=== PATIENT | female | born 1960 | race Caucasian/White ===

== ENCOUNTER 2017-02-28 18:53 | Emergency (ER) | payer MEDICARE, MEDICAID ==
[~2017-02-28] VITALS: Ht 157.5 cm; Wt 69.0 kg
[2017-02-28 19:05] VITALS: BP 192/95; PULSE 96; RESP 19; TEMP 98.6; O2SAT 97
[2017-02-28 19:08] VITALS: BP 192/95; PULSE 96; RESP 19; TEMP 98.6; O2SAT 97
[2017-02-28] MEDS ORDERED: ALBUAER3 INH (19:20)
[2017-02-28] MEDS ORDERED: MSIR15 PO (19:20)
[2017-02-28] MEDS ORDERED: LYRI75CA PO (19:20)
[2017-02-28] MEDS ORDERED: CYCL10TA PO (19:20)
[2017-02-28 19:22] VITALS: BP 233/101; PULSE 96; RESP 16; O2SAT 97
[2017-02-28] MEDS ORDERED: BUTA1CAP PO (19:22)
[2017-02-28] MEDS ORDERED: PRIL20TA2 (19:22)
[2017-02-28] MEDS ORDERED: REGL10TA5 PO (19:22)
[2017-02-28] MEDS ORDERED: diphenhydrAMINE HCL 50 MG/ML VIAL IVP ONE (20:00)
[2017-02-28] MEDS ORDERED: TETANUS/DIPHTHERIA TOXOID ADULT 0.5 ML VIAL IM ONE (20:00)
[2017-02-28] MEDS ORDERED: SODIUM CHLORIDE 0.9% FLUSH 10 ML FLUSH IVF PRN (20:00)
[2017-02-28] MEDS ORDERED: SODIUM CHLOR 0.9% 1000 ML INJ 1,000 ML IV ONE (20:00)
[2017-02-28] MEDS ORDERED: METOCLOPRAMIDE HCL 10 MG/2 ML VIAL IVP ONE (20:00)
--- NOTE | 2017-02-28 20:08 | PD ---
HPI Chief Complaint: Fall Time Seen by Provider: 19:46 Travel History International Travel<30 days: No Contact w/Intl Traveler<30days: No Traveled to known affect area: No History of Present Illness HPI Patient comes in for evaluation status post trip and fall that occurred shortly prior to arrival. Patient states she tripped over the sidewalk injuring her right ankle, left knee, and hitting her head. This was a witnessed fall. Witness reports that she either lost consciousness for just was dazed momentarily. Patient describes pain in her head as an exploding pain in the right parietal lobe without radiation. Denies anything making it better or worse. Patient complaining of aching pain in her left knee and right ankle. Reports right ankle has improved since being in the emergency department and she is able to move it now. Denies anything making it worse. Patient's states left knee pain is worse with movement causing not able to flex it. Pain improved with not moving it. Denies any radiation of pain. Patient reports she is supposed to take a blood thinner but has not taken it in months. She denies any chest pain, shortness of breath, nausea, vomiting, loss or change in bowel or bladder, numbness or tingling anywhere, change in vision, or fevers. Patient uncertain of last tetanus shot. 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) Social History Alcohol Use: Yes (rarely) Tobacco Use: Yes (1ppd) Substance Use: No Allergies-Medications (Allergen,Severity, Reaction): Coded Allergies: adhesive tape (Verified Allergy, Unknown, 02/28/17) Reported Meds & Prescriptions Reported Meds & Active Scripts Active Reported Reglan (Metoclopramide HCl) 10 Mg Tab 10 Mg PO QID Prilosec (Omeprazole Magnesium) 20 Mg Tab Fioricet (Drdnmhuuzl-Zyfvoardarbyu-Vvxwzbbo) 50-300-40 Mg Cap 1 Cap PO Q4H PRN Proair Hfa 8.5 GM Inh (Albuterol Sulfate) 90 Mcg/Act Aer 2 Puff INH Q4-6H PRN 108 mcg/actuation Lyrica (Pregabalin) 75 Mg Cap 75 Mg PO HS Flexeril (Cyclobenzaprine HCl) 10 Mg Tab 10 Mg PO TID Morphine IR (Morphine Sulfate) 15 Mg Tab 15 Mg PO TID PRN Review of Systems Except as stated in HPI: all other systems reviewed are Neg Physical Exam Narrative GENERAL: Well-developed, overly nourished, in no acute distress, and non-ill appearing. SKIN: Focused skin assessment warm and dry. Superficial abrasion noted over anterior aspect of left knee is tender to palpation. There is no crepitus or foreign body noted. HEAD: Atraumatic. Normocephalic. EYES: Pupils equal and round. EOMI. No scleral icterus. No injection or drainage. ENT: No nasal bleeding or discharge. Mucous membranes pink and moist. NECK: Trachea midline. No tenderness or crepitus over midline of the cervical spine. Supple. No nuclear rigidity. CARDIOVASCULAR: Regular rate and rhythm. No murmur appreciated. Dorsal pulses 2+, tach, and equal bilaterally. Capillary refill less than 2 seconds. RESPIRATORY: No accessory muscle use. No respiratory distress. MUSCULOSKELETAL: No obvious deformities. No clubbing. No cyanosis. No edema. Decreased range of motion left knee secondary to pain. Knee: Negative patellar apprehension, varus and valgus maneuvers, anterior draw test, and Aiden test. Pulses equal BL distal to injury. Capillary refill less than 2 seconds distal to injury and equal BL. FROM distal to injury and equal BL. Strength distal to injury equal BL. NV intact distal to injury. Dorsal pulses equal BL. Sensation equal BL 1st web space. Ankle: Neagative anterior draw and Felton test. Negative Kade's sign. No laxity noted with passive inversion and eversion of BL ankles. Negative squeeze test. Pulses equal BL distal to injury. Capillary refill less than 2 seconds distal to injury and equal BL. Sensation equal BL 1st web space. FROM of toes distal to injury and equal BL. NV intact distal to injury and equal BL. Dorsal pulses equal BL. Patient reports pain in the left knee passive movement. NEUROLOGICAL: Awake and alert. No obvious cranial nerve deficits. Motor grossly within normal limits. Normal speech. PSYCHIATRIC: Appropriate mood and affect; insight and judgment normal. Data Data Last Documented VS Vital Signs Date Time Temp Pulse Resp B/P (MAP) Pulse Ox O2 Delivery O2 Flow Rate FiO2 02/28/17 22:39 02/28/17 19:22 96 16 97 Room Air 02/28/17 19:08 98.6 Orders Orders Wound Care (02/28/17 20:00) Tetanus/Diphtheria Tox Adult (Tetanus/Di (02/28/17 20:00) Knee, Complete (4vws) (02/28/17 ) Ankle, Complete (Wxz0bod) (02/28/17 ) Ice/Cold Pack (02/28/17 20:00) Ct Brain W/O Iv Contrast(Rout) (02/28/17 ) Ct Cerv Spine W/O Contrast (02/28/17 ) Ecg Monitoring (02/28/17 20:00) Iv Access Insert/Monitor (02/28/17 20:00) Oximetry (02/28/17 20:00) Sodium Chloride 0.9% Flush (Ns Flush) (02/28/17 20:00) Diphenhydramine Inj (Benadryl Inj) (02/28/17 20:00) Metoclopramide Inj (Reglan Inj) (02/28/17 20:00) Sodium Chlor 0.9% 1000 Ml Inj (Ns 1000 M (02/28/17 20:00) Splint Or Brace Apply/Monitor (02/28/17 20:47) Ketorolac Inj (Toradol Inj) (02/28/17 22:30) Ed Discharge Order (02/28/17 22:16) Immobilizer Knee 20 Inch (02/28/17 ) Brace Ankle Stirrup (02/28/17 ) MDM Medical Decision Making Medical Screen Exam Complete: Yes Emergency Medical Condition: Yes Interpretation(s) Last Impressions Knee X-Ray 02/28/17 0000 Signed Impressions: Service Date/Time: February 20:34 - CONCLUSION: Unremarkable examination of the left knee. Saw Harrington MD Head CT 02/28/17 0000 Signed Impressions: Service Date/Time: February 21:27 - CONCLUSION: No acute intracranial injury Saw Harrington MD Cervical Spine CT 02/28/17 0000 Signed Impressions: Service Date/Time: February 21:29 - CONCLUSION: No acute bony injury in the cervical spine Saw Harrington MD Ankle X-Ray 02/28/17 0000 Signed Impressions: Service Date/Time: February 20:31 - CONCLUSION: Unremarkable examination of the right ankle. Saw Harrington MD Differential Diagnosis Fracture, strain, contusion, dislocation, sprain, closed head injury, intracranial hemorrhage, abrasion, laceration Narrative Course Patient presents with closed head injury. There was no evidence of cranial or intracranial injury noted on CT of the head and no evidence of fracture or injury to cervical spine on C-spine CT. The patient has been behaving normally and no notable altered mental status. [place] score of 15. The neurologic exam is normal. The patient is awake and aware and motor sensory exams are normal. There is no clinical evidence to support intracranial injury or bleed. There is no clinical evidence to suspect bony injury by exam of the knee. Radiographic examination revealed no fracture seen at this time. No obvious ligamental injury or obvious internal derangement is noted at this time. The anterior, posterior, lateral and medial collateral ligaments are intact and symmetrical. The distal extremity appears neurovascularly intact, without evidence of neurovascular injury nor compartment syndrome. Tendon exam also was intact. The effected limb was immobilized. The patient was discharged on with sprain and splint care instructions and given warnings for vascular compromise. The patient is to follow up with Orthopedics. The patient agrees with plan. There is no clinical evidence for fracture of the ankle. There is no clinical evidence to suspect bony injury by exam. Radiographic examination revealed no fracture seen at this time. No obvious ligamental injury or internal derangement is noted at this time. The distal extremity appears neurovascularly intact, without evidence of neurovascular injury nor compartment syndrome. Tendon exam also was intact. The effected limb was splinted. The patient was discharged with sprain and splint care instructions and given warnings for vascular compromise. The patient is to follow up with Orthopedics. The patient agrees with plan. The patient suffered abrasion. The abrasion is very superficial and nonrepairable. There was no evidence to suggest foreign bodies. Visual and tactile exams were unremarkable. There was no evidence of neurovascular injury as well. The patients wound were cleaned and dressed. The patient was given signs and symptom warnings for infection, such as increasing pain, redness, swelling, associated heat, pus or fever. The patient was warned of possible unseen foreign body and instructed to return immediately if signs or symptoms develop. The patient was given instructions for timely follow up. The patient agreed with plan of care. Patient in no obvious distress upon re-evaluation. Patient is noted be sleeping comfortably in bed in no acute distress. Upon waking. Patient reports symptoms have improved. All pertinent Radiology result(s) discussed with patient. Discussed patient with Dr. Woodard prior to discharge, who is in agreement with plan of care and disposition. Any questions/concerns in reference to patient diagnosis/condition discussed and clarified prior to patient's discharge. Reinforced sheer importance of close follow up with patient 's primary physician or primary care clinic. Instructed patient to return to ED immediately, if symptoms return/worsen. Patient showed understanding of above instructions. Further instructions and recommendations were detailed in discharge paperwork. Patient ambulated without difficulty out of ED at discharge. Diagnosis Primary Impression: Closed head injury Qualified Codes: S09.90XA - Unspecified injury of head, initial encounter Additional Impressions: Left knee sprain Qualified Codes: S83.92XA - Sprain of unspecified site of left knee, initial encounter Right ankle sprain Qualified Codes: S93.401A - Sprain of unspecified ligament of right ankle, initial encounter Abrasion Referrals: Deshawn Dubois MD Patient Instructions: Abrasion (GEN), Ankle Sprain (ED), Ankle Sprain Exercises (GEN), Ankle Stirrup Splint (ED), Crutch Instructions (ED), General Instructions, Head Injury (ED), Knee Immobilizer (GEN), Knee Sprain (DC) Additional Instructions: Follow-up with your primary care physician and/or orthopedics in 2-5 days for reevaluation. Apply ice to affected area 20 minutes per hour as needed for pain. Keep wound dry and clean as possible using soap and water. Use Neosporin to promote healing. Use crutches and/or walker as needed for support when walking. Return to the emergency department if symptoms get worse. Disposition: 01 DISCHARGE HOME Condition: Stable Erick Brooke Feb 28, 2017 20:08
--- NOTE | 2017-02-28 21:09 | RADRPT ---
EXAM DATE/TIME: 02/28/2017 20:31 [facility] COMPARISON: No previous studies available for comparison. INDICATIONS : Right ankle pain after fall off curb. MEDICAL HISTORY : None. SURGICAL HISTORY : None. ENCOUNTER: Initial ACUITY: 1 day PAIN SCORE: 4/10 LOCATION: Right medial ankle. FINDINGS: Three view exam was performed of the right ankle. The bony structures are in normal alignment. No e vidence of fracture, dislocation, or soft tissue swelling. The ankle mortise is intact. No radiopaq ue foreign bodies are seen. Bony mineralization is normal. CONCLUSION: Unremarkable examination of the right ankle. Saw Harrington MD on February 28, 2017 at 21:06 Board Certified Radiologist. This report was verified electronically.
--- NOTE | 2017-02-28 21:13 | RADRPT ---
EXAM DATE/TIME: 02/28/2017 20:34 [facility] COMPARISON: No previous studies available for comparison. INDICATIONS : Left knee pain after fall off curb. MEDICAL HISTORY : None. SURGICAL HISTORY : None. ENCOUNTER: Initial ACUITY: 1 day PAIN SCORE: 10/10 LOCATION: Left anterior knee. FINDINGS: Four view examination of the left knee demonstrates no evidence of fracture or dislocation. Bony min eralization is normal. The articular surfaces are intact. The suprapatellar soft tissues have a nor mal configuration. CONCLUSION: Unremarkable examination of the left knee. Saw Harrington MD on February 28, 2017 at 21:11 Board Certified Radiologist. This report was verified electronically.
--- NOTE | 2017-02-28 22:03 | RADRPT ---
EXAM DATE/TIME: 02/28/2017 21:27 [facility] COMPARISON: No previous studies available for comparison. INDICATIONS : Trauma fall. Cephalgia. RADIATION DOSE: 56.35 CTDIvol (mGy) MEDICAL HISTORY : Hypertension. Cerebrovascular disease. SURGICAL HISTORY : None. ENCOUNTER: Initial ACUITY: 1 day PAIN SCALE: 10/10 LOCATION: cranial TECHNIQUE: Multiple contiguous axial images were obtained of the head. Using automated exposure control and adj ustment of the mA and/or kV according to patient size, radiation dose was kept as low as reasonably a chievable to obtain optimal diagnostic quality images. DICOM format image data is available electro nically for review and comparison. FINDINGS: CEREBRUM: The ventricles are normal for age. No evidence of midline shift, mass lesion, hemorrhage or acute in farction. No extra-axial fluid collections are seen. POSTERIOR FOSSA: The cerebellum and brainstem are intact. The 4th ventricle is midline. The cerebellopontine angle i s unremarkable. EXTRACRANIAL: The visualized portion of the orbits is intact. SKULL: The calvaria is intact. No evidence of skull fracture. CONCLUSION: No acute intracranial injury Saw Harrington MD on February 28, 2017 at 22:00 Board Certified Radiologist. This report was verified electronically.
--- NOTE | 2017-02-28 22:11 | RADRPT ---
EXAM DATE/TIME: 02/28/2017 21:29 [facility] COMPARISON: No previous studies available for comparison. INDICATIONS : Trauma fall. RADIATION DOSE: 39.7 CTDIvol (mGy) MEDICAL HISTORY : Hypertension. Cerebrovascular disease. DDD. SURGICAL HISTORY : None. ENCOUNTER: Initial ACUITY: 1 day PAIN SCALE: 0/10 LOCATION: neck TECHNIQUE: Volumetric scanning of the cervical spine was performed. Multiplanar reconstructions in the sagittal, coronal and oblique axial planes were performed. Using automated exposure control and adjustment o f the mA and/or kV according to patient size, radiation dose was kept as low as reasonably achievable to obtain optimal diagnostic quality images. DICOM format image data is available electronically f or review and comparison. FINDINGS: Cervical spine alignment is satisfactory. There is no evidence of cervical spine fracture. There is d egenerative change with disc space narrowing and endplate formation most notably at C6-7. There is no evidence of bony canal or foraminal compromise. No paraspinal hematoma is present. CONCLUSION: No acute bony injury in the cervical spine Saw Harrington MD on February 28, 2017 at 22:07 Board Certified Radiologist. This report was verified electronically.
[2017-02-28] MEDS ORDERED: KETOROLAC TROMETHAMINE 30 MG/ML (IVP) VIAL IV PUSH ONE (22:30)
== END 2017-02-28 22:50 | disposition home or self-care (01) ==
LOC: NEPC 18:53
DX: S09.90XA Unspecified injury of head, initial encounter (principal); S83.92XA Sprain of unspecified site of left knee, initial encounter; S93.401A Sprain of unspecified ligament of right ankle, initial encounter; W01.0XXA Fall on same level from slipping, tripping and stumbling without subsequent striking against object, initial encounter; Y92.480 Sidewalk as the place of occurrence of the external cause; Z23 Encounter for immunization
CPT/HCPCS: 70450; 72125; 73564; 73610; 90471; 90714; 96361; 96374; 96375; 99285; E0113; J1200; J1885; J2765; J7030; L1830; L1906